=== PATIENT | male | born 1950 | race African-American/Black ===

== ENCOUNTER 2018-12-17 07:28 | Emergency (ER) | payer MEDICARE ==
[~2018-12-17] VITALS: Ht 170.2 cm; Wt 85.0 kg
[2018-12-17] MEDS ORDERED: ASPIRIN 81MG TABLET PO ONE (08:15)
[2018-12-17 09:00] LABS: EOSINOPHILS % 0.9 % (0.0-5.0); HEMATOCRIT. 46.6 % (42.0-52.0); HEMOGLOBIN. 14.8 g/dL (14.0-18.0); LYMPHOCYTES % 16.9 % (20.0-50.0); MEAN CORPUSCULAR HEMOGLOBIN 25.3 pg (28.0-32.0); MEAN CORPUSCULAR VOLUME 79.6 fL (80.0-94.0); MEAN PLATELET VOLUME 9.6 fl (7.4-10.4); NEUTROPHILS % 78.2 % (40.0-76.0); PLATELET 173 x1000/uL (130-400); RED BLOOD CELL COUNT 5.85 mill/uL (4.7-6.1); RED CELL DISTRIBUTION WIDTH 16.1 % (11.6-14.6)
[2018-12-17] MEDS ORDERED: IPRATROPIUM BROMIDE (0.02%) 0.5MG/2.5ML NEB HHN STA (09:01)
[2018-12-17] MEDS ORDERED: ALBUTEROL (0.083%) 2.5MG/3ML NEB HHN STA (09:01)
[2018-12-17] MEDS ORDERED: METHYLPREDNISOLONE SOD SUCC 125 MG/2 ML VIAL IV STA (09:01)
[2018-12-17 09:05] LABS: CHLORIDE 106 mEq/L (98-107)
[2018-12-17 09:07] LABS: INR 0.9; PROTHROMBIN TIME 9.7 sec (9.6-11.0)
[2018-12-17] MEDS ORDERED: DOXYCYCLINE HYCLATE 100 MG/VIAL IV ONE (09:45)
[2018-12-17] MEDS ORDERED: DOXYCYCLINE 100MG in DEXTROSE 5% WATER 100ML IV NR (10:00)
[2018-12-17 13:01] VITALS: BP 163/98
== END 2018-12-17 13:09 | disposition left against medical advice (07) ==
LOC: ER 07:28 → CANBEDREQ 15:24
DX: J18.9 Pneumonia, unspecified organism (principal); A41.9 Sepsis, unspecified organism; R07.89 Other chest pain; J45.909 Unspecified asthma, uncomplicated; E11.9 Type 2 diabetes mellitus without complications; I10 Essential (primary) hypertension; Z88.6 Allergy status to analgesic agent
CPT/HCPCS: 36415; 71045; 80053; 83605; 83880; 84484; 85025; 85610; 87040; 93005; 94640; 96365; 96375; 99291; J2930; J3490; J7060; J7611